=== PATIENT | female | born 1950 | race Caucasian/White ===

== ENCOUNTER → 2019-11-22 13:12 | Outpatient (CLI) | payer MEDICARE, OTHER, SELFPAY ==
--- NOTE | 2019-11-22 | DI.MRI.S_ITS ---
PROCEDURE: MR ANGIO HEAD WO CON INDICATIONS: Pulsatile tinnitus, unspecified ear TECHNIQUE: Noncontrast axial 3-D [id number] MR angiogram, with 3-dimensional maximum intensity projection (MIP) reformats of the internal carotid arteries and posterior circulation then performed. COMPARISON: None. FINDINGS: Image quality: Excellent. Anterior circulation: Intracranial internal carotid arteries demonstrate normal intraluminal flow signal. Atherosclerotic irregularity noted in the cavernous and supraclinoid segments of the internal carotid arteries bilaterally which causes multifocal mild moderate. The flow within the paired anterior cerebral arteries is normal. 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 The flow within the middle cerebral arteries is normal. Atherosclerotic irregularity noted in the M1 segments of the middle cerebral arteries bilaterally which causes focal, short segment stenoses in the proximal and distal segments of the M1 segment of the right middle cerebral artery and mild multifocal septa no sees in the M1 segment of the left middle cerebral artery. The anterior communicating artery is seen. No occlusions or aneurysms. Posterior circulation: There is normal flow in the V4 segments of the vertebral arteries bilaterally. Patient is left vertebral artery dominant. Normal flow noted in the basilar artery. Scattered atherosclerotic irregularity noted in the V4 segment of the right vertebral artery which causes mild multifocal stenosis. Scattered atherosclerotic irregularity noted in the basilar artery which causes multifocal mild to moderate stenosis. Flow within the posterior cerebral arteries is normal and symmetric. The left posterior cerebral artery has a origin. No occlusions or aneurysms. IMPRESSION: 1. Short segment, high-grade stenoses involving the proximal and distal aspects of the M1 segment of the right middle cerebral artery. 2. Multifocal mild to moderate stenoses involving the basilar artery. 2. Multifocal mild to moderate stenosis involving the cavernous and supraclinoid segments of the internal carotid arteries bilaterally. Dictated by: Netta Johnson MD, PhD on 11/22/2019 at 15:18 Approved by: Netta Johnson MD, PhD on 11/22/2019 at 15:23
== END ==
PROVIDERS: Referring Provider Internal Medicine; Visit Provider Internal Medicine
DX: H93.A9 Pulsatile tinnitus, unspecified ear (principal); I65.23 Occlusion and stenosis of bilateral carotid arteries; I65.1 Occlusion and stenosis of basilar artery; I66.01 Occlusion and stenosis of right middle cerebral artery
CPT/HCPCS: 70544

== ENCOUNTER → 2023-10-22 12:14 | Outpatient (CLI) | payer MEDICARE, OTHER, SELFPAY ==
--- NOTE | 2023-10-22 12:16 | DI.US.S_ITS ---
PROCEDURE: US EXTREMITY NONVASC LOWER LT INDICATIONS: MASS OF SUBCUTANEOUS TISSUE OF BILATERAL FEET TECHNIQUE: Real-time scanning was performed of the ankle region, with image documentation. COMPARISON: None. FINDINGS: Sonographic images of the ankle region demonstrate bilateral focus of subcutaneous echogenicity. It measures 3.6 x 1.3 x 5.3 cm on the left ankle and 3.8 x 1.1 x 2.3 cm in the left mid foot. There is no increased vascularity. 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 Dictated by: Rohini Osman M.D. on 10/22/2023 at 15:17 Approved by: Rohini Osman M.D. on 10/22/2023 at 15:18
--- NOTE | 2023-10-22 12:16 | DI.US.S_ITS ---
PROCEDURE: US EXTREMITY NONVASC LOWER RT INDICATIONS: MASS OF SUBCUTANEOUS TISSUE OF BILATERAL FEET TECHNIQUE: Real-time scanning was performed of the right ankle, with image documentation. COMPARISON: [facility], , US EXTREMITY NONVASC LOWER LT, 10/22/2023, 12:26. FINDINGS: At the lateral aspect of the right ankle, there is a 4.7 x 1.8 x 3.9 cm homogeneous, isoechoi, ellipsoid, subcutaneous mass without significant internal vascularity. The mass is noncompressible. 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 Direct tissue sampling or MRI of the right ankle with and without contrast recommended for evaluation. Dictated by: Michael Banks M.D. on 10/22/2023 at 13:47 Approved by: Michael Banks M.D. on 10/22/2023 at 13:54
== END ==
PROVIDERS: Referring Provider Student in an Organized Health Care Education/Training Program; Visit Provider Student in an Organized Health Care Education/Training Program
DX: R22.43 Localized swelling, mass and lump, lower limb, bilateral (principal)
CPT/HCPCS: 76882

== ENCOUNTER → 2024-09-29 13:06 | Outpatient (CLI) | payer MEDICARE, OTHER, SELFPAY ==
--- NOTE | 2024-09-29 13:09 | DI.US.S_ITS ---
PROCEDURE: US ART LOW EXT LT W/DONTRELL INDICATIONS: LEFT FOOT PAIN TECHNIQUE: Color and pulse Doppler interrogation was performed of both lower extremity arterial systems, with image documentation. COMPARISON: None. FINDINGS: Left lower extremity: PROMOTIONAL DEMONSTRATOR triphasic SFA, popliteal and tibial arteries biphasic Common femoral artery: 253 cm/sec Deep femoral artery: 180 cm/sec Proximal superficial femoral artery: 190 cm/sec Mid superficial femoral artery: 131 cm/sec Distal superficial femoral artery: 237 cm/sec Popliteal artery: 71 cm/sec Posterior tibial artery: 42 cm/sec Anterior tibial artery/dorsalis pedis: 54 cm/sec Arias-scale imaging description: Scattered atherosclerotic plaque DONTRELL: 0.9 IMPRESSION: Elevated peak systolic velocity in the common femoral artery suggests inflow disease. Additional distal SFA elevated velocity consistent with focal high-grade stenosis. No occlusion. Approved by: Mateo Grant M.D. on 09/30/2024 at 9:58
== END ==
LOC: US 13:07
PROVIDERS: PCP Family Medicine; Referring Provider Nurse Practitioner Family; Visit Provider Nurse Practitioner Family
DX: M79.672 Pain in left foot (principal)
CPT/HCPCS: 93979